=== PATIENT | male | born 1980 | race Caucasian/White ===

== ENCOUNTER 2025-05-21 23:39 | Emergency (ER) | payer MEDICAID ==
[~2025-05-21] VITALS: Ht 180.3 cm; Wt 82.0 kg
[2025-05-21 23:41] VITALS: O2SAT 99
[2025-05-22 02:01] VITALS: BP 113/69; PULSE 93; RESP 18; TEMP 36.5; O2SAT 98
== END 2025-05-22 02:05 | disposition home or self-care (01) ==
LOC: ER 23:39
DX: T51.0X1A Toxic effect of ethanol, accidental (unintentional), initial encounter (principal); Z98.890 Other specified postprocedural states; Y92.9 Unspecified place or not applicable
CPT/HCPCS: 99283